=== PATIENT | female | born 1960 | race Caucasian/White ===

== ENCOUNTER 2018-05-20 15:21 | Emergency (ER) | payer OTHER ==
[~2018-05-20] VITALS: Ht 160 cm; Wt 74.4 kg
[2018-05-20 15:27] VITALS: Ht 160 cm; Wt 74.4 kg
[2018-05-20 18:30] VITALS: BP 124/76
== END 2018-05-20 18:30 | disposition home or self-care (01) ==
LOC: ED 15:21
DX: N39.0 Urinary tract infection, site not specified (principal); R51 Headache
CPT/HCPCS: J1885